=== PATIENT | male | born 1945 | race Caucasian/White ===

== ENCOUNTER 2016-09-22 22:54 | Emergency (ER) | payer OTHER ==
[~2016-09-22] VITALS: Ht 177.8 cm; Wt 126.0 kg
[~2016-09-22 22:54] MED LIST: AMOX500T PO; GLIP5TAB8 OR; GLUCTAB PO; LORT5TAB PO
[2016-09-22 23:07] VITALS: BP 122/71; PULSE 107; RESP 24; TEMP 99.4; O2SAT 95
[2016-09-22] MEDS ORDERED: GLIP10TA6 PO (23:30)
[2016-09-22] MEDS ORDERED: METF1000 PO (23:30)
[2016-09-22] MEDS ORDERED: LISI-515 PO (23:30)
[2016-09-22 23:45] VITALS: BP 146/65; PULSE 94; RESP 20; O2SAT 96
--- NOTE | 2016-09-23 00:52 | RADHPO ---
EXAM DATE/TIME: 09/23/2016 00:34 [facility] COMPARISON: No previous studies available for comparison. INDICATIONS : Left knee pain, no injury. MEDICAL HISTORY : None. SURGICAL HISTORY : None. ENCOUNTER: Initial ACUITY: 3 days PAIN SCORE: 10/10 LOCATION: Left lateral knee FINDINGS: Four view examination of the left knee demonstrates severe tricompartmental osteoarthritis with joint space narrowing, bony remodeling and a large size joint effusion. No fractures identified CONCLUSION: Tricompartment osteophytes with a large joint effusion. Milton Angel MD on September 23, 2016 at 0:50 Board Certified Radiologist. This report was verified electronically.
[2016-09-23] MEDS ORDERED: KETOROLAC TROMETHAMINE 30 MG/ML (IVP) VIAL IV PUSH ONE (01:00)
[2016-09-23] MEDS ORDERED: ONDANSETRON HCL 4 MG/2 ML VIAL IV PUSH ONE (01:00)
[2016-09-23] MEDS ORDERED: MORPHINE SULFATE 4 MG/ML INJ IV PUSH ONE (01:00)
[2016-09-23 01:05] LABS: AUTOMATED NEUTROPHIL # 11.9 TH/MM3 (1.8-7.7); BASOPHIL # 0.3 TH/MM3 (0-0.2); EOSINOPHIL # 0.1 TH/MM3 (0-0.4); EOSINOPHIL % 0.7 % (0.0-4.0); HEMATOCRIT 44.6 % (39.0-51.0); LYMPH % 8.8 % (9.0-44.0); LYMPHOCYTE # 1.3 TH/MM3 (1.0-4.8); MEAN CORPUSCULAR HEMOGLOBIN 29.4 PG (27.0-34.0); MONO % 6.9 % (0.0-8.0); NEUT % 81.6 % (16.0-70.0); PLATELET COUNT 238 TH/MM3 (150-450); RED BLOOD COUNT 5.01 MIL/MM3 (4.50-5.90); RED CELL DISTRIBUTION WIDTH 13.9 % (11.6-17.2); WHITE BLOOD COUNT 14.6 TH/MM3 (4.0-11.0)
[2016-09-23 01:07] LABS: HEMO FLAGS AUTO DIFF
[2016-09-23] MEDS ORDERED: PRAV40TA2 PO (01:14)
[2016-09-23] MEDS ORDERED: AMLO5TAB2 PO (01:14)
[2016-09-23 01:19] LABS: POTASSIUM 5.1 MEQ/L (3.5-5.1)
[2016-09-23 01:20] LABS: BICARBONATE 24.4 MEQ/L (21.0-32.0)
[2016-09-23 01:25] LABS: PLATELET ESTIMATE SMEAR NORMAL (NORMAL); PLATELET MORPHOLOGY NORMAL (NORMAL); SCAN/DIFF AUTO DIFF CONFIRMED
[2016-09-23 01:30] LABS: APTT (PATIENT) 24.5 SEC (24.3-30.1); PROTHROMBIN TIME - PATIENT 10.7 SEC (9.8-11.6)
[2016-09-23 02:30] VITALS: RESP 20
--- NOTE | 2016-09-23 02:41 | RADHPO ---
EXAM DATE/TIME: 09/23/2016 01:32 [facility] COMPARISON: No previous studies available for comparison. INDICATIONS : Thrombosis. MEDICAL HISTORY : Hypertension. Diabetic. History of DVT in right leg. COPD. SURGICAL HISTORY : No recorded surgical history. ENCOUNTER: Initial ACUITY: 1 day PAIN SCORE: 0/10 LOCATION: Left leg. TECHNIQUE: Venous ultrasound of the leg was performed from the inguinal ligament to the proximal calf. Real-radha e, color Doppler and spectral tracing, compression and augmentation techniques were used. FINDINGS: There is normal compressibility of the deep venous system from the inguinal region to the proximal ca lf. No echogenic clot is seen in the lumen of the common femoral, femoral, popliteal, and posterior tibial veins. There is a normal response of the venous system to proximal and distal augmentation an d respiration. CONCLUSION: Normal examination. Prominent Hatfield cyst measuring 4.6-1.4 x 2.0 cm Milton Angel MD on September 23, 2016 at 2:39 Board Certified Radiologist. This report was verified electronically.
[2016-09-23] MEDS ORDERED: LIDOCAINE HCL 1% PF 30 ML VIAL INFIL ONE (03:15)
--- NOTE | 2016-09-23 03:52 | PD ---
HPI Chief Complaint: Injury Time Seen by Provider: 00:10 Travel History International Travel<30 days: No Contact w/Intl Traveler<30days: No Traveled to known affect area: No History of Present Illness HPI 71-year-old male presents to the emergency department for complaint of left knee pain and swelling and left leg swelling. Patient denies any injury. Patient has history of previous DVT. Patient denies chest pain shortness of breath pleuritic pain or hemoptysis. Patient denies any recent protracted bedrest long distance travel or surgical procedure. He should states pain is so severe that he could not weight-bear to step down the stairs at his home therefore had to be transported by 911. Patient states blood sugars have been well-controlled. Patient denies any fever or chills. Patient is not noticed any abrasion to the knee increased warmth or redness. Patient states pain is so severe that he is incapable of bending his knee without severe pain or having pain into the lower leg. Patient has not had any claudication denies any pallor or coolness of the extremity. Patient takes no blood thinning agents. The patient rates his pain 9/10 in intensity. PFSH Past Medical History Narrative Medical Diabetes hypertension copd obesity DVT tobacco use no alcohol use nursing notes reviewed Cancer: No Diabetes: Yes Patient Takes Glucophage: Yes (09/22/16 0800) Hepatitis: No Hiatal Hernia: No Hypertension: Yes Medical other: Yes (BLOOOD CLOT RIGHT LEG) Respiratory: Yes (COPD) Thyroid Disease: No Past Surgical History Abdominal Surgery: No Cardiac Surgery: No Ear Surgery: No Endocrine Surgery: No Eye Surgery: No Genitourinary Surgery: No Gynecologic Surgery: No Oral Surgery: No Thoracic Surgery: No Other Surgery: Yes Social History Alcohol Use: No Tobacco Use: Yes Substance Use: No Allergies-Medications (Allergen,Severity, Reaction): Coded Allergies: No Known Allergies (Verified , 09/22/16) Reported Meds & Prescriptions Reported Meds & Active Scripts Active Walker Rolling/GetGo (Device) 1 Mis Mis 1 Ea .ROUTE DIRECTED Reported Pravastatin 40 Mg Tab 40 Mg PO DAILY Amlodipine (Amlodipine Besylate) 5 Mg Tab 5 Mg PO DAILY Lisinopril 20 Mg Tab 20 Mg PO DAILY Glipizide 10 Mg Tab 10 Mg PO BIDAC Take 30 minutes before a meal Metformin (Metformin HCl) 1,000 Mg Tab 1,000 Mg PO BIDPC With meals Review of Systems Except as stated in HPI: all other systems reviewed are Neg General / Constitutional: No: Fever, Chills HENT: No: Congestion Cardiovascular: No: Chest Pain or Discomfort, Tachycardia, Diaphoresis Respiratory: No: Hemoptysis, Pleuritic Pain Gastrointestinal: No: Nausea, Vomiting Genitourinary: No: Dysuria Musculoskeletal: Positive: Edema (Left knee), Pain ( left lower extremity), No : Myalgias, Arthralgias Skin: No Rash Neurologic: No: Weakness Psychiatric: No: Anxiety Hematologic/Lymphatic: No: Easy Bruising Physical Exam Narrative GENERAL: Well-developed obese male in no acute distress no respiratory distress SKIN: Warm and dry. HEAD: Normocephalic. EYES: No scleral icterus. No injection or drainage. NECK: Supple, trachea midline. No JVD or lymphadenopathy. CARDIOVASCULAR: Regular rate and rhythm without murmurs, gallops, or rubs. RESPIRATORY: Breath sounds equal bilaterally. No accessory muscle use. GASTROINTESTINAL: Abdomen soft, non-tender, nondistended. MUSCULOSKELETAL: No cyanosis, swelling of the left knee and lower leg with ballotable left knee effusion without increased redness increased warmth tenderness to palpation no laxity or joint instability with provocative testing however increased pain with attempted range of motion of the left knee. Dorsalis pedis pulse 2+ to palpation capillary refill brisk and less than 2 seconds per digit Tenderness to direct palpation. BACK: Nontender without obvious deformity. No CVA tenderness. Data Data Last Documented VS Vital Signs Date Time Temp Pulse Resp B/P Pulse Ox O2 Delivery O2 Flow Rate FiO2 09/23/16 04:40 96 20 129/69 96 09/22/16 23:07 99.4 Room Air Orders Knee, Complete (4vws) (09/23/16 ) Us Leg Venous Doppler (09/23/16 ) Complete Blood Count With Diff (09/23/16 00:10) Basic Metabolic Panel (Bmp) (09/23/16 00:10) Act Partial Throm Time (Ptt) (09/23/16 00:10) Prothrombin Time / Inr (Pt) (09/23/16 00:10) Ketorolac Inj (Toradol Inj) (09/23/16 01:00) Ondansetron Inj (Zofran Inj) (09/23/16 01:00) Morphine Inj (Morphine Inj) (09/23/16 01:00) Synovial Fl Cell Count + Diff (09/23/16 02:53) Synovial Fluid Crystals (09/23/16 02:53) Synovial Fluid Total Protein (09/23/16 02:53) Fluid Culture And Gram Stain (09/23/16 02:53) Westergren Sedimentation Rate (09/23/16 02:53) Lidocaine Pf 1% Inj (Xylocaine-Mpf 1% In (09/23/16 03:15) Labs Laboratory Tests Test 09/23/16 09/23/16 00:55 03:43 White Blood Count 14.6 TH/MM3 Red Blood Count 5.01 MIL/MM3 Hemoglobin 14.7 GM/DL Hematocrit 44.6 % Mean Corpuscular Volume 89.0 FL Mean Corpuscular Hemoglobin 29.4 PG Mean Corpuscular Hemoglobin 33.0 % Concent Red Cell Distribution Width 13.9 % Platelet Count 238 TH/MM3 Mean Platelet Volume 8.5 FL Neutrophils (%) (Auto) 81.6 % Lymphocytes (%) (Auto) 8.8 % Monocytes (%) (Auto) 6.9 % Eosinophils (%) (Auto) 0.7 % Basophils (%) (Auto) 2.0 % Neutrophils # (Auto) 11.9 TH/MM3 Lymphocytes # (Auto) 1.3 TH/MM3 Monocytes # (Auto) 1.0 TH/MM3 Eosinophils # (Auto) 0.1 TH/MM3 Basophils # (Auto) 0.3 TH/MM3 CBC Comment AUTO DIFF Differential Comment AUTO DIFF CONFIRMED Platelet Estimate NORMAL Platelet Morphology Comment NORMAL Red Cell Morphology Comment NORMAL Erythrocyte Sedimentation Rate 12 mm/hr Prothrombin Time 10.7 SEC Prothromb Time International 1.0 RATIO Ratio Activated Partial 24.5 SEC Thromboplast Time Sodium Level 141 MEQ/L Potassium Level 5.1 MEQ/L Chloride Level 107 MEQ/L Carbon Dioxide Level 24.4 MEQ/L Anion Gap 10 MEQ/L Blood Urea Nitrogen 16 MG/DL Creatinine 0.97 MG/DL Estimat Glomerular Filtration 77 ML/MIN Rate Random Glucose 224 MG/DL Calcium Level 8.5 MG/DL Synovial Fluid Color YELLOW Synovial Fluid Appearance MARKED Synovial Fluid WBC 93882 /MM3 Synovial Fluid RBC 158 /MM3 Synovial Fluid Neutrophils 90 % Synovial Fluid Lymphocytes 0 % Synovial Fluid Histiocytes 10 % MDM Medical Decision Making Medical Screen Exam Complete: Yes Emergency Medical Condition: Yes Medical Record Reviewed: Yes Interpretation(s) US LLE : per reading radiologist no DVT large hatfield's cyst left knee x-ray: Significant degenerative changes and marked arthritis tricompartmental with joint space narrowing and large effusion cbc: Leukocytosis 14,600 with left shift 81.6% neutrophils Metabolic panel: Random glucose 224, elevated however normal range bicarbonate and anion gap Sedimentation rate: 12 not elevated Laboratory Tests Test 09/23/16 00:55 White Blood Count 14.6 TH/MM3 Red Blood Count 5.01 MIL/MM3 Hemoglobin 14.7 GM/DL Hematocrit 44.6 % Mean Corpuscular Volume 89.0 FL Mean Corpuscular Hemoglobin 29.4 PG Mean Corpuscular Hemoglobin 33.0 % Concent Red Cell Distribution Width 13.9 % Platelet Count 238 TH/MM3 Mean Platelet Volume 8.5 FL Neutrophils (%) (Auto) 81.6 % Lymphocytes (%) (Auto) 8.8 % Monocytes (%) (Auto) 6.9 % Eosinophils (%) (Auto) 0.7 % Basophils (%) (Auto) 2.0 % Neutrophils # (Auto) 11.9 TH/MM3 Lymphocytes # (Auto) 1.3 TH/MM3 Monocytes # (Auto) 1.0 TH/MM3 Eosinophils # (Auto) 0.1 TH/MM3 Basophils # (Auto) 0.3 TH/MM3 CBC Comment AUTO DIFF Differential Comment AUTO DIFF CONFIRMED Platelet Estimate NORMAL Platelet Morphology Comment NORMAL Red Cell Morphology Comment NORMAL Prothrombin Time 10.7 SEC Prothromb Time International 1.0 RATIO Ratio Activated Partial 24.5 SEC Thromboplast Time Sodium Level 141 MEQ/L Potassium Level 5.1 MEQ/L Chloride Level 107 MEQ/L Carbon Dioxide Level 24.4 MEQ/L Anion Gap 10 MEQ/L Blood Urea Nitrogen 16 MG/DL Creatinine 0.97 MG/DL Estimat Glomerular Filtration 77 ML/MIN Rate Random Glucose 224 MG/DL Calcium Level 8.5 MG/DL Differential Diagnosis Internal knee derangement, osteoarthritis, pseudogout, traumatic effusion, bursitis, septic arthritis, DVT, fracture Narrative Course IV access obtained specimens collected and sent for resulting imaging studies ordered including ultrasound of the left lower extremity in view of prior history of DVT and x-ray of the left knee in view of large ballotable effusion. X-ray of the left knee shows large effusion significant osteophytes and joint space narrowing with degenerative changes consistent with osteoarthritis; total white cell count elevated at 14,600 with 81% neutrophils; metabolic panel within normal limits except for random hyperglycemia 224; Coagulation studies within normal range Ultrasound of the left lower extremity identifies no DVT; large Hatfield cyst; patient with daughter at bedside informed of US results including no DVT and large hatfield's cyst. In view of patient reporting severe pain with attempted weightbearing and with range of motion of the left knee with large effusion white count of 14,600 with left shift and presenting history of 99.4F and heart rate of 107 have discussed with patient proceeding with arthrocentesis to assess joint fluid and to assess left knee for septic arthritis. Patient denies any fever or chills. Patient has had no redness or increased warmth of the left knee. Patient now reports that symptoms have been present for 3 days but increased today. Patient however does wish to proceed with arthrocentesis and after informed consent procedure was performed. Straw colored synovial fluid was collected and sent for cell count differential, glucose, protein, Gram stain and culture and sensitivity as well as crystals. At 4:35 AM patient has decided sign out AMA with pending synovial fluid results not yet available. Patient again is aware of reasons for arthrocentesis is to evaluate and assess the patient for septic arthritis. Patient is aware of risk and reason for staying and benefit of staying. Patient is diabetic and is aware of increased risk for joint infection requiring iv antibiotics and definitive surgical intervention. Patient still unwilling to stay and has determined that he will sign out AGAINST MEDICAL ADVICE. Daughter's home/ functional phone number is [phone] and daughter is at bedside. No evidence of drainage from arthrocentesis aspiration site. AMA: The risks of leaving against medical advice without further evaluation treatment were discussed with the patient. These risks include need for surgical intervention, possible amputation sepsis or . The patient indicated understanding of these risks and appeared to have the capacity to make this decision. After patient left AMA synovial fluid resulted and noted to be cloudy straw- colored with 16,240 white blood cells 90% neutrophils and 158 red blood cells 10 % histiocytes; glucose and protein results not available; Gram stain pending. Results discussed with concrete smoother orthopedist; aware patient has signed out AMA prior to synovial fluid results being available. @ 0715 call placed to [phone] patient Jose Guadalupe Waldrop informed of lab/ synovial fluid results and encouraged to return to the ED today for ongoing management. Again denies h/o alcohol use and denies h/o gout. Procedures Procedure Narrative After informed consent obtained discussing in detail risks and benefits and patient's questions answered to his satisfaction for arthrocentesis of the left knee; the left knee was sterilely prepped and draped with site cleansed with ChloraPrep and Betadine; 3 cc of 1% lidocaine plain was used for local anesthetic; a 22-gauge needle was used to aspirate 20 cc of cloudy straw- colored fluid; patient tolerated procedure well; Band-Aid was applied at aspiration site and ice pack. Synovial fluid was sent for cell count and differential, Gram stain and culture with sensitivity, glucose, crystals, and protein. Sepsis Criteria SIRS Criteria (2 or more): Heart rate over 90, WBC > 93298, < 4000 or > 10% bands Sepsis Criteria (SIRS+source): Infect source susp/known (possible left knee) Diagnosis Primary Impression: Left knee pain Qualified Code: M25.562 - Acute pain of left knee Additional Impressions: Effusion of knee joint, left Diabetes Referrals: Orthopaedic Surgeon call for appointment Additional Instructions: Even though you've decided to sign out AGAINST MEDICAL ADVICE at this time please return for any concerns or change in condition Scripts Walker Rolling/GetGo 1 Mis Mis #1 Ea .route As Directed Prov:Amna Worrell MD 09/23/16 Disposition: 07 AGAINST MEDICAL ADVICE Condition: Stable Amna Worrell MD Sep 23, 2016 03:51
[2016-09-23] MEDS ORDERED: GETGO ROLLING W1 MI1 (04:37)
[2016-09-23 04:38] LABS: WBC, SYNOVIAL FLUID 16240 /MM3 (0-200)
[2016-09-23 04:40] VITALS: BP 129/69
[2016-09-23 09:00] LABS: SYNOVIAL FLUID CRYSTALS POS - CALCIUM PYRO
[2016-09-24] MEDS ORDERED: ZANTTAB PO (10:49)
[2016-09-24] MEDS ORDERED: NORC5TAB PO (10:49)
[2016-09-24] MEDS ORDERED: INDO50CA PO (10:49)
== END 2016-09-23 05:12 | disposition left against medical advice (07) ==
LOC: PHED 22:54
DX: M25.562 Pain in left knee (principal); M79.89 Other specified soft tissue disorders; Z86.718 Personal history of other venous thrombosis and embolism; J44.9 Chronic obstructive pulmonary disease, unspecified; I10 Essential (primary) hypertension; E11.9 Type 2 diabetes mellitus without complications; E66.9 Obesity, unspecified; F17.200 Nicotine dependence, unspecified, uncomplicated; Z79.899 Other long term (current) drug therapy; Z79.84 Long term (current) use of oral hypoglycemic drugs; M25.462 Effusion, left knee
CPT/HCPCS: 20610; 73564; 80048; 84157; 85025; 85610; 85652; 85730; 87070; 87205; 89051; 89060; 93971; 96374; 96375; 99284; J1885; J2270; J2405

== ENCOUNTER 2016-09-24 09:58 | Emergency (ER) | payer OTHER ==
[~2016-09-24 09:58] MED LIST changes: +AMLO5TAB2 PO; -AMOX500T PO; +GETGO ROLLING W1 MI1; +GLIP10TA6 PO; -GLIP5TAB8 OR; -GLUCTAB PO; +LISI-515 PO; -LORT5TAB PO; +METF1000 PO; +PRAV40TA2 PO
[2016-09-24 10:11] VITALS: BP 105/63; PULSE 100; RESP 20; TEMP 99.5; O2SAT 95
[2016-09-24] MEDS ORDERED: NORC5TAB PO (10:49)
[2016-09-24] MEDS ORDERED: ZANTTAB PO (10:49)
[2016-09-24] MEDS ORDERED: INDO50CA PO (10:49)
--- NOTE | 2016-09-24 10:49 | PD ---
HPI Chief Complaint: Musculoskeletal Complaint Time Seen by Provider: 10:34 Travel History International Travel<30 days: No Contact w/Intl Traveler<30days: No Traveled to known affect area: No History of Present Illness HPI Patient is a 71-year-old male who presents emergency department for left knee pain. The patient states his left knee pain started several days ago , he was evaluated in the emergency Department we had a workup including x-ray, ultrasound, and arthrocentesis performed. 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 The patient states the pain located left knee has been persistent, he has not been taking medications for his left knee pain. He states he is able to flex it, it is somewhat painful with movement however. He denies any significant redness over the affected area. He denies any known history of gout or pseudogout. The patient does have a history of diabetes and hyperlipidemia. Patient's symptoms are moderate, slightly worse with movement, slightly alleviated at rest. He denies any fever, chills, or sweats. PFSH Past Medical History Cancer: No Diabetes: Yes Patient Takes Glucophage: No Hepatitis: No Hiatal Hernia: No Hypertension: Yes Respiratory: Yes (COPD) Thyroid Disease: No Past Surgical History Abdominal Surgery: No Cardiac Surgery: No Ear Surgery: No Endocrine Surgery: No Eye Surgery: No Genitourinary Surgery: No Gynecologic Surgery: No Oral Surgery: No Thoracic Surgery: No Other Surgery: Yes Social History Alcohol Use: No Tobacco Use: Yes Substance Use: No Allergies-Medications (Allergen,Severity, Reaction): Coded Allergies: No Known Allergies (Verified , 09/24/16) Reported Meds & Prescriptions Reported Meds & Active Scripts Active Walker Rolling/GetGo (Device) 1 Mis Mis 1 Ea .ROUTE DIRECTED Reported Pravastatin 40 Mg Tab 40 Mg PO DAILY Amlodipine (Amlodipine Besylate) 5 Mg Tab 5 Mg PO DAILY Lisinopril 20 Mg Tab 20 Mg PO DAILY Glipizide 10 Mg Tab 10 Mg PO BIDAC Take 30 minutes before a meal Metformin (Metformin HCl) 1,000 Mg Tab 1,000 Mg PO BIDPC With meals Review of Systems Except as stated in HPI: all other systems reviewed are Neg General / Constitutional: No: Fever Gastrointestinal: No: Nausea, Vomiting Musculoskeletal: Positive: Edema, Pain Skin: No Rash Neurologic: No: Paresthesia, Sensory Disturbance Endocrine: Positive: Other (history of diabetes) Physical Exam Narrative GENERAL: Awake, alert, nontoxic-appearing 71-year-old male who appears his stated age and is in no acute respiratory distress. SKIN: Warm and dry. HEAD: Atraumatic. Normocephalic. EYES: No injection or drainage. ENT: No nasal bleeding or discharge. Mucous membranes pink and moist. NECK: Trachea midline. No JVD. MUSCULOSKELETAL: Minimal swelling over left knee compared to the right. The patient is able flex the knee to 90. Mild warmth but no significant erythema. Mild effusion noted. Chronic venous stasis changes lower extremities bilaterally, right greater than left. Positive distal pulses. NEUROLOGICAL: Awake and alert. No obvious cranial nerve deficits. Motor grossly within normal limits. Normal speech. Sensation is symmetric bilaterally on the lower extremities. PSYCHIATRIC: Appropriate mood and affect; insight and judgment normal. Data Data Last Documented VS Vital Signs Date Time Temp Pulse Resp B/P Pulse Ox O2 Delivery O2 Flow Rate FiO2 09/24/16 10:11 99.5 100 20 105/63 95 MDM Medical Decision Making Medical Screen Exam Complete: Yes Emergency Medical Condition: Yes Medical Record Reviewed: Yes Differential Diagnosis Differential diagnosis includes gout, pseudogout, arthropathy, septic arthritis , knee effusion. Narrative Course I reviewed the patient's EMR from his previous visit where he had an x-ray of the knee which revealed an effusion which I with arthritis. Patient also had an ultrasound left lower extremity that was negative. Patient did have an arthrocentesis of the left knee which revealed 16,400 WBCs. The patient's culture was negative, there were no WBCs seen, however, there were a viral phosphate crystals identified. The patient's examination and arthrocentesis results are consistent with pseudogout. The patient will be placed on indomethacin and Robards, advised to follow-up with his primary physician. Diagnosis Primary Impression: Pseudogout of knee Qualified Code: M11.862 - Pseudogout of knee, left Patient Instructions: General Instructions Additional Instructions: Please provide the patient a copy of his x-ray results, ultrasound results, and arthrocentesis results with culture results from his previous visit by Dr. Worrell. Indocin and Robards as directed. Follow-up with your primary physician. Med/Other Pt SpecificInfo: Prescription(s) given Scripts Hydrocodone-Acetaminophen (Robards)5-325 mg Tab1 Tab PO Q6H PRN (PAIN) #20 TAB Ref 0 Prov:Trev Christianson MD 09/24/16 Ranitidine (Zantac 150 Maximum Strength)150 Mg [id number] Mg PO BID 5 Days Prov:Trev Christianson MD 09/24/16 Indomethacin 50 Mg Cap50 Mg PO TID 5 Days Ref 0 Take with food, milk, or antacids to decrease stomach adverse effects. Prov:Trev Christianson MD 09/24/16 Disposition: 01 DISCHARGE HOME Condition: Stable Trev Christianson MD Sep 24, 2016 10:49
== END 2016-09-24 11:10 | disposition home or self-care (01) ==
LOC: PHED 09:58
DX: M11.262 Other chondrocalcinosis, left knee (principal)
CPT/HCPCS: 99283